=== PATIENT | female | born 1995 | race Caucasian/White ===

== ENCOUNTER 2016-06-15 17:45 | Emergency (ER) | payer OTHER ==
[~2016-06-15] VITALS: Ht 165.1 cm; Wt 62.0 kg
[~2016-06-15 17:45] MED LIST: FLAGYL500 MG PO
[2016-06-15 19:51] LABS: MCH 29.5 PG (29.0-34.0); MCV 84.4 FL (83-99); MEAN PLAT.VOLUME 9.7 uM^3 (9.5-12.4); PLATELET COUNT 149 K/uL (156-360); RBC DIS.WIDTH-CV 12.7 % (11.8-14.6); RBC DIS.WIDTH-SD 38.7 % (39-53); RED BLOOD COUNT 4.74 M/uL (3.80-5.20); WHITE BLOOD COUNT 5.5 K/uL (4.1-10.2)
[2016-06-15 20:02] LABS: CHLORIDE 104 mEq/L (99-109); POTASSIUM 3.9 mEq/L (3.7-5.4); SODIUM 139 mEq/L (136-147)
[2016-06-15 20:04] LABS: GLUCOSE 107 mg/dL (70-99)
[2016-06-15 20:05] LABS: ANION GAP 10 MEQ/L (2-14)
[2016-06-15 20:08] LABS: GFR ESTIMATE (CALCULATED) > 59 mL/min/
[2016-06-15 20:09] LABS: UREA NITROGEN (BUN) 6 mg/dL (9-23)
[2016-06-15 20:16] LABS: QUANTITATIVE HCG < 4.0 MIU/ML
[2016-06-15 20:32] LABS: INTERNAL CONTROL VALID? YES; MONOSPOT (MONONUCLEOSIS SEROL) NEGATIVE
[2016-06-15 21:14] LABS: INFLUENZA A VIRAL ANTIGEN NEGATIVE; INFLUENZA B VIRAL ANTIGEN NEGATIVE
[2016-06-15 23:52] VITALS: BP 113/78
== END 2016-06-15 23:53 | disposition home or self-care (01) ==
LOC: EME 17:45 → EXP 17:45
PROVIDERS: Physician Assistant
DX: J02.9 Acute pharyngitis, unspecified (principal); R59.1 Generalized enlarged lymph nodes; Z88.0 Allergy status to penicillin; Z88.2 Allergy status to sulfonamides
CPT/HCPCS: 70491; 71020; 80048; 84702; 85027; 86308; 87502; 87651 90; 99281; 99285; J1100; J1885; J2405; J7030